=== PATIENT | male | born 1975 | race Caucasian/White ===

== ENCOUNTER 2019-08-12 09:42 | Emergency (ER) | payer OTHER, SELFPAY ==
[2019-08-12 10:13] VITALS: BP 139/81; PULSE 100; RESP 16; TEMP 37.7; O2SAT 99
--- NOTE | 2019-08-12 10:57 | ED.MALEGU ---
HPI - Male Genitourinary General Chief complaint: Urogenital-Male Stated complaint: uti Time Seen by Provider: 08/12/19 10:51 Source: patient and RN notes reviewed Mode of arrival: ambulatory Limitations: no limitations History of Present Illness HPI Narrative: Patient presents today complaining of dysuria, frequency, and hematuria since yesterday. Denies abdominal pain or flank pain. He took a dose of his 's Augmentin last night and states it did provide some relief. Denies concerns for sexually transmitted infections. No penile discharge. Denies fever. MD Complaint: dysuria Related Data Home Medications Medication Instructions Recorded Confirmed allopurinol 08/12/19 alprazolam 08/12/19 anastrozole mg 08/12/19 indomethacin 08/12/19 testosterone cypionate mg 08/12/19 Allergies Allergy/AdvReac Type Severity Reaction Status Date / Time No Known Allergies Allergy Unknown Verified 01/14/19 10:29 No Known Allergies Allergy Uncoded 01/14/19 10:29 Review of Systems Review of Systems: Narrative: CONSTITUTIONAL: Denies body aches, fever, chills, or sweats. EYES: Denies visual changes, redness, or discharge. ENT: Denies rhinorrhea, congestion, sore throat, or otalgia. CARDIOVASCULAR: Denies chest pain, palpitations, or edema. RESPIRATORY: Denies cough or dyspnea. GASTROINTESTINAL: Denies abdominal pain, nausea, vomiting, or diarrhea. GENITOURINARY: + Dysuria, frequency, hematuria SKIN: Denies rash, itching, or wounds. MUSCULOSKELETAL: Denies back pain, joint pain, or myalgia. NEUROLOGIC: Denies headache, numbness, tingling, or weakness. PSYCH: Denies depression or anxiety. PMFSH Comments At time of signature, I have reviewed and agree with nursing past medical, surgical, social and family history unless otherwise noted. Please see nursing chart for further information. There is no relevant family history pertinent to the presenting complaint Exam Narrative: Exam Narrative: GENERAL: Well-appearing, well-nourished, and in no acute distress. HEAD: Normocephalic, atraumatic. EYES: EOMI. No redness or drainage. Conjunctivae normal. ENT: Mucous membranes pink and moist. NECK: Normal AROM. CHEST: No respiratory distress. Clear to auscultation. HEART: Regular rate and rhythm. No murmur appreciated. Normal peripheral pulses. ABDOMEN: Soft, nontender, nondistended, normal active bowel sounds.-CVAT MUSCULOSKELETAL: No bony tenderness. EXTREMITIES: Normal range of motion. No edema. SKIN: Warm, dry, no rash. Capillary refill normal. Normal skin turgor. NEURO: No focal deficits. Alert and oriented x3. Gait steady. PSYCH: Normal affect. No signs of depression or anxiety. Course Vital Signs Vital signs: Vital Signs Temperature 99.9 F H 08/12/19 10:13 Pulse Rate 100 08/12/19 10:13 Respiratory Rate 16 08/12/19 10:13 Blood Pressure 139/81 08/12/19 10:13 Pulse Oximetry 99 08/12/19 10:13 Temperature 99.9 F H 08/12/19 10:13 Pulse Rate 100 08/12/19 10:13 Respiratory Rate 16 08/12/19 10:13 Blood Pressure 139/81 08/12/19 10:13 Pulse Oximetry 99 08/12/19 10:13 Reviewed. Pt has been instructed to follow up with his PCP regarding his elevated blood pressure today. MDM - Male Genitourinary Differential Diagnosis Differential diagnosis: Likely urinary tract infection, urethritis and prostatitis Lab Data Attestation: I reviewed the patient's lab results. Labs: Urine Glucose Negative Reference Range: Negative Urine Bilirubin Negative Reference Range: Negative Urine Ketone Negative Reference Range: Negative Urine Specific [place] 1.005 Reference Range:1.001-1.035 Urine Blood 2+ Reference Range: Negative * * Urine pH 6.0 Reference Range: 5.0-9.0 Urine Protein Ne
== END 2019-08-12 11:02 | disposition home or self-care (01) ==
PROVIDERS: Emergency Provider Nurse Practitioner; PCP Family Medicine
DX: N30.01 Acute cystitis with hematuria (principal); M10.9 Gout, unspecified
CPT/HCPCS: 81003; 87077; 87086; 87088; 87186; 99213; G0463

== ENCOUNTER 2019-12-22 15:57 | Emergency (ER) | payer OTHER, SELFPAY ==
--- NOTE | ~2019-12-22 | CT_ITS ---
EXAMINATION: CT abdomen pelvis w con DATE: 12/22/2019 17:34 INDICATION: Lower abdominal pain. TECHNIQUE: Computed tomography (CT) of the abdomen and pelvis was performed with 100 mL Omnipaque 350 intravenous contrast. Automated exposure control and iterative reconstruction technique were employe d. The dose-length product was 829.35 mGy-cm. COMPARISON: None. FINDINGS: The visualized portions of the lung bases demonstrate minimal atelectasis. No pleural effus ion. The heart size is normal. No pericardial effusion. There are cysts in the liver measuring up to 7 mm. The gallbladder, spleen, pancreas, adrenal glands, and kidneys are normal. The prostate is mild ly enlarged. There is prominent fat in the inguinal canals. There are no dilated loops of bowel. The appendix is normal. There are no pathologically enlarged lymph nodes. There is no free intraperitonea l fluid. There is mild thoracolumbar spondylosis. IMPRESSION: 1. Prominent fat in the inguinal canals that may be small hernias. Reviewed, dictated and finalized at location A.
[2019-12-22 16:04] VITALS: BP 156/92; PULSE 105; RESP 18; TEMP 36.4; O2SAT 100
--- NOTE | 2019-12-22 16:42 | ED.GENADULT ---
HPI - General Adult General Chief complaint: Urogenital-Male Stated complaint: prostate issues Time Seen by Provider: 12/22/19 16:04 Source: patient History of Present Illness HPI narrative: Patient is a 44 y/o male complaining of intermittent dysuria, pelvic pain for last 4 months. He states that he just finished a course of antibiotics 10 days for presumed prostate infection. He has no fever, chills. He describes dysuria as burning sensation and he also has trouble starting his stream sometimes. Urination worsens his symptoms. Related Data Home Medications Medication Instructions Recorded Confirmed anastrozole mg 12/22/19 tamsulosin mg PO 12/22/19 Allergies Allergy/AdvReac Type Severity Reaction Status Date / Time methylprednisolone Allergy Unknown anxiety Verified 12/22/19 16:19 poison seamus extract Allergy Unknown Skin Verified 12/22/19 16:19 Reaction Review of Systems Constitutional: Constitutional: Denies chills, Denies fever(s), Denies headache(s) and Denies weakness Eyes: Eyes: Denies blurry vision ENT: Denies headache(s) and Denies neck pain Cardiovascular: Cardiovascular: Denies chest pain and Denies dyspnea Respiratory: Respiratory: Denies cough and Denies dyspnea Gastrointestinal: Gastrointestinal: Denies abdominal pain, Denies diarrhea, Denies nausea and Denies vomiting Genitourinary: Genitourinary: Denies hematuria and Reports dysuria Musculoskeletal: Musculoskeletal: Denies back pain and Denies neck pain Neurologic: Denies headache(s) and Denies weakness [facility] Surgical History Surgical History Hx of tonsillectomy Social History Social History Smoking status: Current every day smoker Gender identity (if verbalized by the patient): Male Exam Const: General: no acute distress and well developed Orientation/consciousness: oriented to person, oriented to place, oriented to time and patient oriented x3 HENMT: Head: normocephalic Ears: external ears normal General nose exam: Normal external nose present Eyes: General: appearance normal, both eyes and all related structures Conjunctivae: conjunctivae normal Neck: Neck: normal visual inspection and full ROM Chest: Chest palpation & inspection: normal inspection of the chest and no tenderness Resp: Effort & Inspection: normal respiratory effort Auscultation: clear to auscultation bilaterally Cardio: Rate: regular rate Rhythm: regular rhythm GI: GI Palp: No abdominal tenderness and Yes Soft to palpation Skin: General skin exam: normal color and turgor normal Neuro: General: oriented to person, oriented to place, oriented to time and patient oriented x3 Cognition (Neuro): normal cognition Extrem: General: normal to inspection, full ROM and no pedal edema Psych: Appearance: grossly normal Mental Status: mental status grossly normal Affect: normal affect Course Vital Signs Vital signs: Vital Signs Temperature 36.4 C 12/22/19 16:04 Pulse Rate 105 H 12/22/19 16:04 Respiratory Rate 18 12/22/19 16:04 Blood Pressure 156/92 H 12/22/19 16:04 Pulse Oximetry 100 12/22/19 16:04 Temperature 36.4 C 12/22/19 16:04 Pulse Rate 105 H 12/22/19 16:04 Respiratory Rate 18 12/22/19 16:04 Blood Pressure 156/92 H 12/22/19 16:04 Pulse Oximetry 100 12/22/19 16:04 Medical Decision Making Vital Signs Vital Signs: Vital Signs Temperature 36.4 C 12/22/19 16:04 Pulse Rate 105 H 12/22/19 16:04 Respiratory Rate 18 12/22/19 16:04 Blood Pressure 156/92 H 12/22/19 16:04 Pulse Oximetry 100 12/22/19 16:04 Temperature 36.4 C 12/22/19 16:04 Pulse Rate 105 H 12/22/19 16:04 Respiratory Rate 18 12/22/19 16:04 Blood Pressure 156/92 H 12/22/19 16:04 Pulse Oximetry 100 12/22/19 16:04 Lab Data Result diagrams: 12/22/19 16:40 12/22/19 16:40 Labs:
[2019-12-22 16:48] LABS: Basophils Percent Auto 0.7 % (0.2-1.2); Eosinophils Absolute Auto 0.2 K/mm3 (0-0.3); Eosinophils Percent Auto 3.6 % (0-4.4); Hematocrit 53.8 % (42.0-52.0); Hemoglobin 17.9 g/dL (14.0-18.0); Immature Granulocyte Absolute 0.02 K/mm3 (0.00-0.031); Immature Granulocyte Percent A 0.3 % (0-0.5); Lymphocytes Absolute Auto 2.42 K/mm3 (0.9-3.2); Lymphocytes Percent Auto 39.3 % (18.3-44.2); Mean Corpuscular HGB Conc 33.3 g/dl (32-36); Mean Corpuscular Hemoglobin 29.6 pg (26-34); Mean Corpuscular Volume 88.9 fl (80-100); Mean Platelet Volume 9.4 fl (7.4-10.4); Monocytes Absolute Auto 0.5 K/mm3 (0.1-0.6); Monocytes Percent Auto 8.1 % (2.6-8.5); Platelet Count Result 246 k/mm3 (150-375); Red Blood Count 6.05 M/mm3 (4.6-6.20); Red Cell Distribution Width 13.3 % (11.5-14.5); White Blood Count 6.2 K/mm3 (4.5-10.0)
[2019-12-22 16:51] LABS: Add Urine Microscopic? YES; Appearance Urine Clear (Clear); Bilirubin Urine Negative (Negative); Blood Urine Negative (Negative); Color Urine Straw (Yellow); Glucose Urine UA Negative (Negative); Ketones Urine Negative (Negative); Leukocyte Esterase Ur Negative LEU/UL (Negative); Nitrate Urine Negative (Negative); Protein Urine Negative (Negative); Squamous Epithelial Cell Urine Rare /hpf (Few); Urobilinogen Urine Negative mg/dL (<2.0)
[2019-12-22 17:05] LABS: Alanine Aminotransferase 38 U/L (4-50); Albumin Level 4.8 g/dL (3.5-5.1); Alkaline Phosphatase 78 U/L (38-126); Anion Gap 9 mmol/L (8-16); Aspartate Amino Transferase 31 U/L (17-59); Bilirubin,Total 0.6 mg/dL (0.2-1.3); Blood Urea Nitrogen 17 mg/dL (9-20); Calcium 9.6 mg/dL (8.4-10.2); Carbon Dioxide 27 mmol/L (22-30); Chloride 103 mmol/L (98-107); Estimated CRCL calculation 90 ml/min; Estimated Glomerular Filt Rate > 60; Glucose 145 mg/dL (75-110); Potassium 4.2 mmol/L (3.4-5.0); Sodium 139 mmol/L (137-145)
[2019-12-22 18:18] VITALS: BP 128/80; PULSE 78; RESP 20; TEMP 36.6; O2SAT 99
== END 2019-12-22 18:19 | disposition home or self-care (01) ==
PROVIDERS: Emergency Provider Emergency Medicine; PCP Family Medicine
DX: R30.0 Dysuria (principal); R10.2 Pelvic and perineal pain; F17.200 Nicotine dependence, unspecified, uncomplicated
CPT/HCPCS: 36415; 74177; 80053; 81001; 85025; 87491; 87591; 99284; Q9967

== ENCOUNTER 2020-03-01 08:02 | Emergency (ER) | payer OTHER, SELFPAY ==
[2020-03-01 08:21] VITALS: BP 139/88; PULSE 78; RESP 16; TEMP 36.2; O2SAT 100
[2020-03-01 08:23] VITALS: BP 139/88; PULSE 78; RESP 16; TEMP 36.2; O2SAT 100
[2020-03-01] MEDS: KETOROLAC (*BKC) 60 MG/2 ML VIAL IM (08:31)
--- NOTE | 2020-03-01 08:34 | ED.EXTPRO ---
HPI - Extremity Problem General Chief complaint: Extremity Problem,Nontraumatic Stated complaint: lt hip pain Time Seen by Provider: 03/01/20 08:06 Source: family and RN notes reviewed Mode of arrival: ambulatory Limitations: no limitations History of Present Illness HPI Narrative: This is a 45-year-old white male who presented to the urgent care today complaining of left hip pain. According to patient he has chronic left hip pain and had a steroid injection by his primary care physician on 02/05/2020. Patient notes that he has slight discomfort to the left hip. Patient notes that he does not have pain while ambulating he mostly has it while he is sitting or lying on his left side. Patient does have a follow-up appointment with his primary care physician on 03/20/2020. Patient denies any loss of sensation tingling or numbness to his lower extremities or gait disturbance. I will treat patient with Toradol he was discharged home with p.o. prednisone, and Dale. The patient denies SOB, CP, palpitation, extremity numbness, lightheadedness, dizziness, constipation, diarrhea, chills, or fever. Related Data Home Medications Medication Instructions Recorded Confirmed anastrozole 1 mg PO DAILY 12/22/19 03/01/20 tamsulosin 0.4 mg PO DAILY 12/22/19 03/01/20 sulfamethoxazole-trimethoprim 1 tablet PO BID 03/01/20 03/01/20 Allergies Allergy/AdvReac Type Severity Reaction Status Date / Time methylprednisolone Allergy Unknown anxiety Verified 02/05/20 11:51 poison seamus extract Allergy Unknown Skin Verified 02/05/20 11:51 Reaction Review of Systems Review of Systems: All systems reviewed & are unremarkable except as noted in HPI and below (10 point system review) [facility] Surgical History Surgical History Hx of tonsillectomy Social History Social History Smoking status: Current every day smoker Gender identity (if verbalized by the patient): Male Exam Narrative: Exam Narrative: GENERAL: This is a well-nourished, well-developed patient, in no apparent distress. HEAD: normocephalic, atraumatic. EYES: PERRL. Sclera clear/white. Vision is grossly intact. EARS: External ears normal, auditory canals clear and without drainage, TMs normal without perforation. Hearing grossly intact. NOSE: External nose normal with no obvious nasal discharge, nares without redness, no rhinorrhea. THROAT: Mucous membranes moist, posterior pharynx clear. NECK: Neck supple, non-tender without lymphadenopathy, masses or thyromegaly. CARDIOVASCULAR: Regular rate and rhythm without murmurs, gallops, or rubs. RESPIRATORY: Clear to auscultation. Breath sounds equal bilaterally. No wheezes, rales, or rhonchi. GASTROINTESTINAL: Abdomen soft, non-tender, nondistended. Bowel sounds are active. No hepato-splenomegaly, or palpable masses. No guarding. SKIN: warm, intact with no suspicious lesions or rash, good texture and turgor. NEURO: awake, alert, and oriented to person, place and time. There were no obvious focal neurologic abnormalities. Steady gait EXTREMITIES: Normal range of motion. No edema. No calf tenderness. Negative Homans sign bilaterally. Tender to touch to the left hip BACK: Nontender without deformity or crepitance. No flank tenderness. Course Course Emergency Course: Patient will receive a Toradol shot discharge home with Dale and a short dose of prednisone Vital Signs Vital signs: Vital Signs Temperature 97.1 F L 03/01/20 08:21 Pulse Rate 78 03/01/20 08:21 Respiratory Rate 16 03/01/20 08:21 Blood Pressure 139/88 03/01/20 08:21 Pulse Oximetry 100 03/01/20 08:21 Temperature 97.1 F L 03/01/20 08:23 Pulse Rate 78 03/01/20 08:23 Respiratory Rate 16 03/01/20 08:23 Blood Pressure 139/88 03/01/20 08:23 Pulse Oximetry 100 03/01/20 08:23 Procedures Other Procedure Procedure 1: Other Pro
== END 2020-03-01 08:55 | disposition home or self-care (01) ==
PROVIDERS: Emergency Provider Nurse Practitioner; PCP Family Medicine
DX: M25.552 Pain in left hip (principal); F17.200 Nicotine dependence, unspecified, uncomplicated
CPT/HCPCS: 96372; 99213; G0463; J1885

== ENCOUNTER 2021-07-05 00:19 | Day surgery (SDC) | payer BC, SELFPAY ==
[2021-06-24 14:56] VITALS: BMI 28.1
[2021-07-05 09:47] VITALS: BP 122/82; PULSE 56; RESP 16; TEMP 36.6; O2SAT 100
[2021-07-05] MEDS: LACTATED RINGERS 1,000 ML 150 ML IV CONT (09:57)
--- NOTE | 2021-07-05 10:34 | PM.HPGS ---
History of Present Illness History of Present Illness Consent: Risks, benefits, and alternatives have been discussed and questions answered. Patient agrees to proceed with procedure. Chief complaint: family hx of colon polyps, neoplasm screening Narrative: Song Marques II is a 46 year old male here for first screening colonoscopy, no family history of colon cancer. Review of Systems Constitutional: Constitutional: Denies headache(s) and Denies weakness Eyes: Eyes: Denies blurry vision ENT: Reports Normal hearing present, Denies headache(s) and Denies neck pain Cardiovascular: Cardiovascular: Denies chest pain and Denies dyspnea Respiratory: Respiratory: Denies dyspnea Gastrointestinal: Gastrointestinal: Reports no additional gastrointestinal complaints Genitourinary: Genitourinary: Denies dysuria Musculoskeletal: Musculoskeletal: Denies neck pain Integumentary/Breasts: Skin/Breast: Denies dry skin Neurologic: Reports Normal hearing present, Denies headache(s) and Denies weakness Psychiatric: Psychiatric: Denies anxiety Endocrine: Endocrine: Denies change in body appearance Hematologic/Lymphatic: Hematologic/Lymphatic: Denies easy bleeding Allergic/Immunologic: Allergic/Immunologic: Denies urticaria [facility] Past Medical History Medical History (Updated 07/05/21 @ 10:34 by Catrachito Hernandez MD) Colon cancer screening Surgical History Surgical History Hx of tonsillectomy Social History Social History Years smoked: 10 Smoking status: Former smoker Tobacco type: cigarettes Additional smoking assessment comments: Pt. is trying to quit has not smoked in 2 weeks. Alcohol intake: never Substance use: never Substance use type: does not use Living arrangements: with family Gender identity (if verbalized by the patient): Male Spiritual care concerns: No Meds Home Medications and Allergies Home Medications Medication Instructions Recorded Confirmed Type tamsulosin 0.4 mg capsule 0.4 mg PO DAILY #90 cap 06/15/20 06/24/21 Rx alprazolam 0.25 mg tablet 0.25 mg PO DAILY PRN #30 tablet 03/01/21 06/24/21 Rx allopurinol 300 mg tablet 300 mg PO DAILY #90 tablet 06/07/21 06/24/21 Rx Allergies Allergy/AdvReac Type Severity Reaction Status Date / Time poison seamus extract Allergy Unknown Skin Verified 07/05/21 09:46 Reaction Vital Signs Vital Signs - 24 hr 07/05/21 09:47 Temperature 97.8 F Pulse Rate 56 L Respiratory Rate 16 Blood Pressure 122/82 Pulse Oximetry 100 Exam Const: General: comfortable and no acute distress HENMT: General nose exam: Normal nares present Eyes: General: appearance normal, both eyes and all related structures Neck: Neck: no JVD Resp: Auscultation: clear to auscultation bilaterally Cardio: Rate: regular rate Rhythm: regular rhythm GI: Inspection: non-distended GI Palp: Yes Soft to palpation Skin: General skin exam: normal color Neuro: General: gait normal Speech: normal speech Extrem: General: normal to inspection Psych: Mental Status: mental status grossly normal Assessment and Plan Assessment and plan (1) Colon cancer screening: Code(s): Z12.11 - Encounter for screening for malignant neoplasm of colon Status: Acute Assessment and Plan: colonoscopy
--- NOTE | 2021-07-05 10:34 | WPDANESEPPF ---
Anes - Initial Pre Proc Eval Procedure: Operation Date: 07/05/21 11:00 Proposed Procedures p Screening Colonoscopy - Catrachito Hernandez MD Date/Time: 07/05/21 10:34 Surgeon: Catrachito Hernandez MD Pre Op Diagnosis: family hx of colon polyps, neoplasm screening Patient Data Age: 46 Gender: M Height: 1.88 m Weight: 99.1 kg Last Vital Signs Temp 97.8 F 07/05/21 09:47 Pulse 56 L 07/05/21 09:47 Resp 16 07/05/21 09:47 BP 122/82 07/05/21 09:47 Pulse Ox 100 07/05/21 09:47 Allergies Allergy/AdvReac Type Severity Reaction Status Date / Time poison seamus extract Allergy Unknown Skin Verified 07/05/21 09:46 Reaction Home Medications Medication Instructions Recorded Confirmed Type tamsulosin 0.4 mg capsule 0.4 mg PO DAILY #90 cap 06/15/20 06/24/21 Rx alprazolam 0.25 mg tablet 0.25 mg PO DAILY PRN #30 tablet 03/01/21 06/24/21 Rx allopurinol 300 mg tablet 300 mg PO DAILY #90 tablet 06/07/21 06/24/21 Rx Patient hx anesthesia problems: none Family hx anesthesia problems: none Results Review: All pre-operative results and documents have been reviewed as part of the pre-operative evaluation. [facility] Past Medical History Medical History (Updated 07/05/21 @ 10:34 by Catrachito Hernandez MD) Colon cancer screening Surgical History Surgical History Hx of tonsillectomy Social History Social History Years smoked: 10 Smoking status: Former smoker Tobacco type: cigarettes Additional smoking assessment comments: Pt. is trying to quit has not smoked in 2 weeks. Alcohol intake: never Substance use: never Substance use type: does not use Living arrangements: with family Gender identity (if verbalized by the patient): Male Spiritual care concerns: No Anes - Eval Final PreProcedure Day of Procedure 07/05/21 10:34 Patient weight: normal Heart: regular rate and rhythm Lungs: clear to auscultation Airway: Mallampati scale class II Neurological: alert and oriented Last oral intake: >/= 8 hours ASA classification: II Emergent: no Anesthetic plan: proceed Anesthesia type and monitoring: general GIVS and standard monitoring Results Review: All pre-operative results and documents have been reviewed as part of the pre-operative evaluation. Informed Consent: The patient's anesthetic plan and its attendant risks and benefits were discussed with the patient/family/POA. Questions were solicited and answers provided to the satisfaction of the patient/family/POA.
[2021-07-05 10:53] VITALS: BP 107/82; PULSE 60; RESP 18; O2SAT 98
[2021-07-05 11:03] VITALS: BP 125/96; PULSE 58; RESP 18; O2SAT 100
[2021-07-05 11:13] VITALS: BP 135/80; PULSE 62; RESP 18; O2SAT 100
== END 2021-07-05 11:30 | disposition home or self-care (01) ==
PROVIDERS: PCP Family Medicine; Visit Provider Internal Medicine Gastroenterology
PROC: 0DJD8ZZ Inspection of Lower Intestinal Tract, Via Natural or Artificial Opening Endoscopic (ICD-10-PCS; CPT 45378; principal; 2021-07-05 11:00)
DX: Z12.11 Encounter for screening for malignant neoplasm of colon (principal); K64.8 Other hemorrhoids; D12.3 Benign neoplasm of transverse colon; Z87.891 Personal history of nicotine dependence
CPT/HCPCS: 45380; 88305; J2704; J7120

== ENCOUNTER 2023-06-04 15:22 | Emergency (ER) | payer BC, SELFPAY ==
--- NOTE | 2023-06-04 15:26 | ED.GENADULT ---
HPI - General Adult General Chief complaint: Extremity Injury, Lower Stated complaint: Bilateral Thumb and Knee Pain Time Seen by Provider: 06/04/23 15:26 Source: patient Mode of arrival: ambulatory Limitations: no limitations History of Present Illness HPI narrative: 48-year-old male patient presents to [facility] complaint pain for several weeks now. 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 Patient states he has been taking year mg of ibuprofen twice a day and Tylenol but states continues to have achiness. Patient states it feels like sandpaper when he bends the knees. Denies any fevers, body aches or chills. Denies any Warmth to the knees. Related Data Home Medications Medication Instructions Recorded Confirmed gzrtasoi-xwcyfzxa-jhcid acid 400 tablet PO 03/22/22 02/09/23 mcg-vit K 20 mcg-lycop 300 mcg tablet (One-A-Day Men's Multivitamin) omega 0-htu-col-fish oil 60 mg-90 1 cap PO DAILY 03/22/22 02/09/23 mg-500 mg capsule Allergies Allergy/AdvReac Type Severity Reaction Status Date / Time poison seamus extract Allergy Unknown Rash Verified 06/04/23 15:31 Review of Systems Review of Systems: CONSTITUTIONAL: Denies fever, chills, or sweats. EYES: Denies visual changes, redness, or discharge. ENT: Denies rhinorrhea, congestion, sore throat, or otalgia. CARDIOVASCULAR: Denies chest pain, palpitations, or edema. RESPIRATORY: Denies cough or dyspnea. GASTROINTESTINAL: Denies abdominal pain, nausea, vomiting, or diarrhea. GENITOURINARY: Denies dysuria or hematuria. SKIN: Denies rash or itching. MUSCULOSKELETAL: Denies back pain, joint pain, or myalgia. Positive bilateral knee and some pain times 2-3 weeks. NEUROLOGIC: Denies headache, numbness, or weakness. PSYCHIATRIC: Denies anxiety or depression. PENDING SALE TO [facility] Past Medical History Medical History Chronic prostatitis Colon polyps colonoscopy 4.4 22 polyps/repeat in 5 years Gout, unspecified Labile hypertension Low back pain Mixed hyperlipidemia Obesity OCD (obsessive compulsive disorder) Urinary retention Surgical History Surgical History Hx of tonsillectomy Social History Social History Years smoked: 10 Smoking status: Current some day smoker Tobacco type: cigarettes Alcohol intake: current Alcohol use details: occasionally Substance use: never Substance use type: does not use Lack of Transportation: No Lack of Food: Never True Current Housing: I Have Housing Concerned About Future Housing: No Difficulty Paying Gas/Electric Bills: No Difficulty Paying for Meds: No Currently Unemployed: No Education: Associate Degree Difficulty w/ Childcare or Family Care: No Living arrangements: with family Gender identity (if verbalized by the patient): Male Spiritual care concerns: No Comments At the time of my signature I agree with nursing past medical history, surgical, social, and family history. There is no relevant family history pertinent to the presenting complaint. Exam Narrative: GENERAL: Well-appearing, well-nourished, and in no acute distress. HEAD: Normocephalic, atraumatic. EYES: PERRLA and EOMI. ENT: Nares clear, no rhinorrhea or epistaxis. Mucous membranes moist. NECK: Supple. No lymphadenopathy CHEST: Clear to auscultation. No respiratory distress. HEART: Regular rate and rhythm. No murmur heard. Normal peripheral pulses. ABDOMEN: Soft, nontender, nondistended, normal active bowel sounds. EXTREMITIES: Patient is able to bear weight and ambulate without pain. No surface trauma, STS, or obvious effusion. No overlying erythema or warmth. The R and L knee is with/without obvious asymmetry or deformity when compared to the R/L knee. Positive c
[2023-06-04 15:30] VITALS: BP 125/84; PULSE 74; RESP 18; TEMP 36.5; O2SAT 99
[2023-06-04 15:32] VITALS: BP 125/84; PULSE 74; RESP 18; TEMP 36.5; O2SAT 99
== END 2023-06-04 16:05 | disposition home or self-care (01) ==
PROVIDERS: Emergency Provider Nurse Practitioner Family; PCP Family Medicine
DX: M17.0 Bilateral primary osteoarthritis of knee (principal); I10 Essential (primary) hypertension; E78.2 Mixed hyperlipidemia; F17.210 Nicotine dependence, cigarettes, uncomplicated
CPT/HCPCS: 99213; G0463

== ENCOUNTER 2023-08-08 08:30 | Outpatient (CLI) | payer BC, SELFPAY ==
--- NOTE | ~2023-08-08 | XR_ITS ---
EXAMINATION: XR knee LT 3V DATE: 08/08/2023 08:49 INDICATION: Left knee pain. TECHNIQUE: 3 views of left knee including standing views were obtained. COMPARISON: None. FINDINGS: Alignment is normal. No fracture. There is mild osteoarthritis of patellofemoral compartmen t. No knee joint effusion. IMPRESSION: 1. Mild left knee osteoarthritis. Reviewed, dictated and finalized at location A.
--- NOTE | ~2023-08-08 | XR_ITS ---
EXAMINATION: XR knee RT 3V DATE: 08/08/2023 08:49 INDICATION: Right knee pain. TECHNIQUE: 3 views of right knee including standing views were obtained. COMPARISON: None. FINDINGS: Bone alignment is normal. No fracture. There is mild osteoarthritis of medial compartment. No knee joint effusion. IMPRESSION: 1. Mild right knee osteoarthritis. Reviewed, dictated and finalized at location A.
== END 2023-08-08 08:31 ==
LOC: GOSHIMG 08:32
PROVIDERS: PCP Family Medicine; Visit Provider Nurse Practitioner Family
DX: M17.0 Bilateral primary osteoarthritis of knee (principal)
CPT/HCPCS: 73562

== ENCOUNTER 2024-08-19 14:06 | Outpatient (CLI) | payer BC, SELFPAY ==
--- NOTE | ~2024-08-19 | XR_ITS ---
[id number] Ordering provider: ZEINA Amaya History: . Neck pain radiating down Rt arm, Rt hand numbness . Comparison: None. FINDINGS: VERTEBRAL BODIES: Normal height and alignment. No visible fracture or subluxation. The dens is intact . DISK SPACES: Narrowing of the disc C5-C6 and C6-C7. Multilevel uncovertebral joint osteoarthritic dave nges. PARASPINOUS SOFT TISSUES: No prevertebral soft tissue swelling. IMPRESSION: No acute osseous abnormality cervical spine. Multilevel degenerative disc disease.. Reviewed, dictated and finalized at location A.
--- NOTE | ~2024-08-19 | XR_ITS ---
3 VIEWS THORACIC SPINE Ordering provider: ZEINA Amaya History: . M54.12 - Radiculopathy, cervical region . Comparison: January 21, 2010 FINDINGS: VERTEBRAL BODIES: Normal height and alignment. No visible fracture or subluxation. Degenerative shelton es of the spine. DISK SPACES: Narrowing of multilevel in the middle and lower thoracic area SOFT TISSUES: Normal. IMPRESSION: No acute osseous abnormality of the thoracic spine. Multilevel degenerative disc disease. Reviewed, dictated and finalized at location A.
== END 2024-08-19 14:07 | disposition home or self-care (01) ==
LOC: GOSHIMG 14:07
PROVIDERS: PCP Nurse Practitioner Family; Visit Provider Nurse Practitioner Family
DX: M54.12 Radiculopathy, cervical region (principal); M54.14 Radiculopathy, thoracic region; M51.24 Other intervertebral disc displacement, thoracic region; M50.30 Other cervical disc degeneration, unspecified cervical region
CPT/HCPCS: 72040; 72072